=== PATIENT | female | born 1965 | race Caucasian/White ===

== ENCOUNTER 2024-05-17 17:04 | Outpatient (CLI) | payer MEDICAID, SELFPAY ==
--- NOTE | 2024-05-17 17:39 | DI.RAD_ITS ---
Exam(s) XR KNEE LT 3V AP,LAT,DE EXAM: XR KNEE LT 3V AP,LAT,DE CLINICAL HISTORY: M25.562 Pain in left knee. TECHNIQUE: 2D digital imaging was performed of the left knee. Three images were obtained. AP, late ral and PA tunnel views were obtained. COMPARISON: No exams were available for comparison FINDINGS: BONES: No acute fracture is present. No bony destructive lesion is seen. There are enthesophytes at the anterior patella. JOINTS: There is mild narrowing of the medial femoral tibial joint. Small osteophytes are seen in al l 3 joint compartments. No joint effusion is seen. No loose body. SOFT TISSUE: Normal. IMPRESSION: 1. No acute abnormality. 2. Miie-rv-[id number] degenerative changes of the left knee. DATA REPOSITORY: RADIATION DOSE DELIVERED:
--- NOTE | 2024-05-17 18:20 | DI.VRAD_ITS ---
PROCEDURE INFORMATION: Exam: XR Left Knee Exam date and time: 05/17/2024 5:22 PM Age: 59 years old Clinical indication: Pain; Left; Patient HX: PT states her knee is hurting for about a year getting worse over the 2 days TECHNIQUE: Imaging protocol: Radiologic exam of the left knee. Views: 3 views. COMPARISON: No relevant prior studies available. FINDINGS: Bones/joints: No acute fracture. No dislocation. No joint effusion. Moderate medial compartment narrowing with osteophytes. Mild lateral compartment narrowing with osteophytes. Mild patellofemoral osteophytes. Soft tissues: No soft tissue gas. No foreign bodies. IMPRESSION: Tricompartmental osteoarthritis. No acute findings. Dictated and Authenticated by: Kvng Bello MD. Ordering:OLAYINKA Jeffries MD
== END 2024-05-17 17:24 ==
PROVIDERS: Visit Provider Physician Assistant Medical
DX: M17.12 Unilateral primary osteoarthritis, left knee (principal)
CPT/HCPCS: 73562